=== PATIENT | male | born 1980 | race Hispanic/Latino ===

== ENCOUNTER 2024-03-20 15:58 | Inpatient (IN) | payer OTHER ==
[~2024-03-20 15:58] MED LIST: Iopamidol-370 76% 500 ML MDV (1 ML CHARGE) ONE
[2024-03-20 17:26] LABS: Hematocrit 43.1 % (42.0-52.0); Hemoglobin 15.6 g/dL (14.0-18.0); Mean Corpuscular HGB CONC 36.2 g/dL (32.0-36.0); Mean Corpuscular Volume 88.5 fL (78.0-98.0); Platelet Count 254 10x3/uL (130-400); RBC Distribution Width 12.4 % (11.5-14.5); Red Blood Cell (RBC) Count 4.87 mill/uL (4.70-6.10)
[2024-03-20] MEDS ORDERED: Morphine 4 MG/ML VIAL ONE (17:26)
[2024-03-20 17:34] LABS: Lipase 26 U/L (8-78)
[2024-03-20] MEDS ORDERED: fentaNYL 50 mcg/mL 1 mL Vial ONE (17:35)
[2024-03-20 17:36] LABS: ALT (SGPT) 69 U/L (8-55); AST (SGOT) 70 U/L (5-34); Albumin 4.5 g/dL (3.5-5.0); Alkaline Phosphatase 89 U/L (40-110); Anion Gap 16 mmol/L (10-20); BUN (Urea Nitrogen) 12 mg/dL (8.9-20.6); Bilirubin, Total 0.4 mg/dL (0.2-1.2); Calc. Creatinine Clearance 0 mL/min (70-130); Calcium 9.5 mg/dL (7.8-10.44); Carbon Dioxide 21 mmol/L (22-29); Chloride 111 mmol/L (98-107); Estimated GFR 86; Glucose 99 mg/dL (70-105); Potassium 4.1 mmol/L (3.5-5.1); Protein, Total 7.5 g/dL (6.0-8.3); Sodium 144 mmol/L (136-145)
[2024-03-20 17:37] LABS: Acetaminophen Less than 10 mcg/mL (10.0-30.0); Alcohol 56.6 mg/dL (Less than 10); Salicylate Less than 8.0 mg/dL (15.0-30.0)
[2024-03-20 17:49] LABS: Troponin I Less than 0.010 ng/mL (< 0.028)
[2024-03-20 18:18] LABS: Band 16 % (5-11); Giant Platelets 0.9 % (0-5); Large Platelets 1.7 % (0-5); Lymphocytes 7 % (21-51); Monocytes 5 % (0-10); Neutrophil 72 % (42-75); Platelet Adequacy Comment Platelets Normal; Polychromasia SLIGHT = 2-3 cells HPF (0-2); Vacuoles SLIGHT
[2024-03-20 18:19] LABS: #Basophils 0.06 10x3/uL (0.0-0.2); #Eosinphils Less than 0.03 10x3/uL (0.0-0.7); %Basophils 0.2 % (0.0-1.0); %Lymphocytes 6.5 % (21.0-51.0); %Monocytes 5.7 % (0.0-10.0); %Neutrophils 87.2 % (42.0-75.0)
[2024-03-20] MEDS ORDERED: SUCCINYLCHOLINE/SOD CL,ISO/PF 200 MG/10 ML SYRINGE FS ONE (18:23)
[2024-03-20] MEDS ORDERED: Lidocaine 1% PF 5 ML VIAL ONE (18:23)
[2024-03-20] MEDS ORDERED: fentaNYL PF 100 MCG/2 ML SYRINGE ONE (18:23)
[2024-03-20] MEDS ORDERED: Ondansetron PF 4 MG/2 ML Vial ONE (18:23)
[2024-03-20] MEDS ORDERED: Dexamethasone 4 mg/ml Vial ONE (18:23)
[2024-03-20] MEDS ORDERED: Ketorolac Tromethamine 30 MG (1 mL) VIAL ONE (18:23)
[2024-03-20] MEDS ORDERED: Rocuronium Bromide 10 MG/ML (10ML VIAL) ONE (18:23)
[2024-03-20] MEDS ORDERED: Midazolam HCl 2 mg/2 ml Vial ONE (18:24)
[2024-03-20] MEDS ORDERED: PROPOFOL 20 ML ONE (18:24)
[2024-03-20] MEDS ORDERED: Ipratropium/Albuterol 3 ML NEB NEB PRN (18:38)
[2024-03-20] MEDS ORDERED: Glucagon 1 MG/ML KIT IM PRN (18:38)
[2024-03-20] MEDS ORDERED: Ondansetron ODT 4 MG TAB PO PRN (18:38)
[2024-03-20] MEDS ORDERED: Dextrose 5% in Water 1,000 ML IV PRN (18:38)
[2024-03-20] MEDS ORDERED: Dextrose 50% Abboject 50 ML SYRINGE SLOW IVP PRN (18:38)
[2024-03-20] MEDS ORDERED: Rib Fracture Protocol PO SCH (18:45)
[2024-03-20 19:26] LABS: Bacteria/HPF None Seen HPF (None Seen); Bilirubin Negative (Negative); Blood, Urine 1+ (Negative); CAUTI Indications for Culture Pelvic or flank pain; Clarity Clear (Clear); Glucose, Urine (Dipstick) Normal (Negative); Ketone, Urine Negative (Negative); Leukocyte Negative Leu/uL (Negative); Nitrite Negative (Negative); Protein, Urine (Dipstick) 30 mg/dL (Neg-Trace); Specific Gravity, Urine 1.045 (1.002-1.036); Squamous Epithelial None Seen HPF (0-3); Urobilinogen Normal mg/dL (Less than 2); WBC/HPF 0-3 HPF (0-3)
[2024-03-20 19:29] LABS: Urine Culture Reflex No No
[2024-03-20 19:30] LABS: Amphetamine Not Detected (NotDetected); Barbiturates Screen Not Detected (NotDetected); Benzodiazepine Screen Not Detected (NotDetected); Cocaine Metabolite Screen Detected (NotDetected); Methadone Not Detected (NotDetected); Methamphetamine Not Detected (NotDetected); Opiate Screen Detected (NotDetected); Oxycodone Screen Not Detected (NotDetected); Phencyclidine (PCP) Not Detected (NotDetected); THC/Cannabinoid Screen Not Detected (NotDetected); Tricyclic Screen Not Detected (NotDetected)
[2024-03-20] MEDS ORDERED: HYDROmorphone 2 MG/ML VIAL ONE (19:54)
[2024-03-20] MEDS ORDERED: PACU-Morphine 4MG/ML VIAL SLOW IVP PRN (19:57)
[2024-03-20] MEDS ORDERED: HYDROmorphone 2 MG/ML VIAL SLOW IVP PRN (19:57)
[2024-03-20] MEDS ORDERED: Promethazine HCl 25 MG/ML VIAL IM PRN (19:57)
[2024-03-20] MEDS ORDERED: Ondansetron HCl/PF 4 MG/2 ML Vial IVP PRN (19:57)
[2024-03-20] MEDS ORDERED: SUGAMMADEX SODIUM 200 MG/2 ML VIAL ONE (20:10)
[2024-03-20] MEDS ORDERED: Meperidine HCl/PF 25 MG (1 mL) VIAL ONE (20:54)
[2024-03-20] MEDS ORDERED: CEFAZOLIN 2 GM in Sodium Chloride 0.9% 100 ML IVPB SCH (22:00)
[2024-03-20] MEDS: Ibuprofen 200 MG TAB PO SCH (22:15)
[2024-03-20] MEDS: Famotidine 20 MG TAB PO SCH (22:15)
[2024-03-20] MEDS: Gabapentin 300 MG CAP PO SCH (22:15)
[2024-03-20] MEDS: CEFAZOLIN 2 GM in Sodium Chloride 0.9% 100 ML IVPB SCH (22:16)
[2024-03-20] MEDS: Famotidine/PF 20 mg/2ml Vial SLOW IVP SCH (22:19)
[2024-03-20] MEDS: Lactated Ringer's 1,000 ML IV SCH (22:19)
[2024-03-20 22:45] LABS: Hematocrit 43.5 % (42.0-52.0); Hemoglobin 15.1 g/dL (14.0-18.0)
[2024-03-20 23:46] VITALS: BMI 27.8
[2024-03-21] MEDS: Ketorolac Tromethamine 30 MG (1 mL) VIAL IVP SCH (00:43)
[2024-03-21] MEDS: traMADol HCl 50 MG TAB PO SCH (00:44)
[2024-03-21] MEDS: Acetaminophen 500 MG TAB PO SCH (00:45)
[2024-03-21] MEDS: Ipratropium/Albuterol 3 ML NEB NEB SCH (01:11)
[2024-03-21] MEDS: Ondansetron PF 4 MG/2 ML Vial IVP PRN (01:34)
[2024-03-21 05:10] LABS: #Basophils Less than 0.03 10x3/uL (0.0-0.2); #Eosinphils Less than 0.03 10x3/uL (0.0-0.7); %Basophils 0.1 % (0.0-1.0); %Lymphocytes 3.6 % (21.0-51.0); %Monocytes 5.4 % (0.0-10.0); %Neutrophils 90.5 % (42.0-75.0); Hematocrit 39.9 % (42.0-52.0); Hemoglobin 14.1 g/dL (14.0-18.0); Mean Corpuscular HGB CONC 35.3 g/dL (32.0-36.0); Mean Corpuscular Hemoglobin 31.3 pg (27.0-31.0); Mean Corpuscular Volume 88.7 fL (78.0-98.0); Mean Platelet Volume 10.4 fL (7.4-10.4); Platelet Count 275 10x3/uL (130-400); RBC Distribution Width 12.7 % (11.5-14.5)
[2024-03-21 05:41] LABS: Anion Gap 19 mmol/L (10-20); BUN (Urea Nitrogen) 13 mg/dL (8.9-20.6); Calc. Creatinine Clearance 124 mL/min (70-130); Calcium 9.1 mg/dL (7.8-10.44); Carbon Dioxide 17 mmol/L (22-29); Chloride 107 mmol/L (98-107); Estimated GFR 101; Glucose 155 mg/dL (70-105); Potassium 3.9 mmol/L (3.5-5.1); Sodium 139 mmol/L (136-145)
[2024-03-21] MEDS: Cyclobenzaprine 10 MG TAB PO PRN (11:04)
[2024-03-21] MEDS: TETANUS, DIPHTHERIA TOX,ADULT (TDVAX) 0.5 ML VIAL IM ONE (11:04)
[2024-03-21] MEDS: Morphine 2 MG/ML VIAL SLOW IVP PRN (16:50)
[2024-03-22] MEDS: Enoxaparin 40 MG (0.4 mL) SYRINGE SC SCH (11:32)
[2024-03-22 12:20] VITALS: BP 135/88; TEMP 98.1
[2024-03-26] MEDS ORDERED: Ibuprofen 200 MG TAB PO SCH (06:00)
== END 2024-03-22 16:05 | disposition home or self-care (01) | DRG 493 ==
LOC: ERS 15:58 → ERHOLD 18:38 → SJJU 21:07
PROVIDERS: ADMIT Surgery; ATTEND Surgery
PROC: 0QSG3BZ Reposition Right Tibia with Monoplanar External Fixation Device, Percutaneous Approach (ICD-10-PCS; principal; 2024-03-21)
DX: S82.871B Displaced pilon fracture of right tibia, initial encounter for open fracture type I or II (principal); S12.590A Other displaced fracture of sixth cervical vertebra, initial encounter for closed fracture; S82.251A Displaced comminuted fracture of shaft of right tibia, initial encounter for closed fracture; S22.41XA Multiple fractures of ribs, right side, initial encounter for closed fracture; S82.891B Other fracture of right lower leg, initial encounter for open fracture type I or II; S82.451A Displaced comminuted fracture of shaft of right fibula, initial encounter for closed fracture; Z89.022 Acquired absence of left finger(s); V89.2XXA Person injured in unspecified motor-vehicle accident, traffic, initial encounter; Y93.I9 Activity, other involving external motion; Y92.411 Interstate highway as the place of occurrence of the external cause
CPT/HCPCS: 27808; 36415; 70450; 70498; 71045; 71260; 72125; 74177; 76377; 80048; 80053; 80306; 80307; 81001; 83690; 84484; 85025; 90714; 94640; 96374; 96375; G0390; J1100; J1170; J1650; J1885; J2175; J2250; J2270; J2272; J2405; J2704; J3010; J3490; J7120; J7620; Q9967; S0028

== ENCOUNTER 2024-04-12 09:03 | Inpatient (IN) | payer OTHER, SELFPAY ==
[2024-04-12 09:28] LABS: #Basophils 0.06 10x3/uL (0.0-0.2); %Basophils 0.6 % (0.0-1.0); %Eosinophils 1.3 % (0.0-10.0); %Lymphocytes 24.4 % (21.0-51.0); %Monocytes 4.2 % (0.0-10.0); %Neutrophils 69.2 % (42.0-75.0); Hematocrit 41.9 % (42.0-52.0); Hemoglobin 14.3 g/dL (14.0-18.0); Mean Corpuscular HGB CONC 34.1 g/dL (32.0-36.0); Mean Corpuscular Hemoglobin 30.7 pg (27.0-31.0); Mean Corpuscular Volume 89.9 fL (78.0-98.0); Platelet Count 501 10x3/uL (130-400); RBC Distribution Width 12.1 % (11.5-14.5); Red Blood Cell (RBC) Count 4.66 mill/uL (4.70-6.10)
[2024-04-12] MEDS ORDERED: Morphine 4 MG/ML VIAL ONE (09:46)
[2024-04-12] MEDS ORDERED: Ketorolac Tromethamine 30 MG (1 mL) VIAL ONE (09:46)
[2024-04-12 09:50] LABS: ALT (SGPT) 53 U/L (8-55); AST (SGOT) 20 U/L (5-34); Albumin 4.2 g/dL (3.5-5.0); Alkaline Phosphatase 153 U/L (40-110); Anion Gap 14 mmol/L (10-20); BUN (Urea Nitrogen) 14 mg/dL (8.9-20.6); Calc. Creatinine Clearance 0 mL/min (70-130); Calcium 10.5 mg/dL (7.8-10.44); Carbon Dioxide 23 mmol/L (22-29); Chloride 105 mmol/L (98-107); Estimated GFR 111; Globulin 4.6 g/dL (2.4-3.5); Glucose 101 mg/dL (70-105); Potassium 3.9 mmol/L (3.5-5.1); Protein, Total 8.8 g/dL (6.0-8.3); Sodium 138 mmol/L (136-145)
[2024-04-12 10:07] LABS: Bilirubin, Total 0.4 mg/dL (0.2-1.2)
[2024-04-12] MEDS ORDERED: Iopamidol-370 76% 500 ML MDV (1 ML CHARGE) ONE (10:15)
[2024-04-12 10:26] LABS: Troponin I Less than 0.010 ng/mL (< 0.028)
[2024-04-12 11:19] LABS: Bacteria/HPF None Seen HPF (None Seen); Bilirubin Negative (Negative); Blood, Urine Negative (Negative); CAUTI Indications for Culture Alt mental st,lethar; Clarity Clear (Clear); Glucose, Urine (Dipstick) Normal (Negative); Ketone, Urine Negative (Negative); Leukocyte Negative Leu/uL (Negative); Nitrite Negative (Negative); Protein, Urine (Dipstick) Negative (Neg-Trace); RBC/HPF 0-3 HPF (0-3); Specific Gravity, Urine 1.016 (1.002-1.036); Squamous Epithelial None Seen HPF (0-3); Urobilinogen Normal mg/dL (Less than 2); WBC/HPF None Seen HPF (0-3); pH, Urine 6.5 (5.0-9.0)
[2024-04-12 11:22] LABS: Urine Culture Reflex No No
[2024-04-12 12:17] LABS: Lactic Acid 1.7 mmol/L (0.5-2.2)
[2024-04-12] MEDS ORDERED: Milk Of Magnesia 30 ML UDCUP PO PRN (15:48)
[2024-04-12] MEDS ORDERED: Bisacodyl 10 MG SUPP PR PRN (15:48)
[2024-04-12] MEDS ORDERED: Morphine 2 MG/ML VIAL SLOW IVP PRN (15:48)
[2024-04-12] MEDS ORDERED: Ondansetron PF 4 MG/2 ML Vial SLOW IVP PRN (15:48)
[2024-04-12] MEDS ORDERED: CEFAZOLIN 2 GM in Sodium Chloride 0.9% 100 ML IVPB SCH (16:00)
[2024-04-12] MEDS ORDERED: Communication Order-Pharmacy FS SCH (16:00)
[2024-04-12 16:37] VITALS: BMI 33.8
[2024-04-12] MEDS: HYDROcodone/Acetaminophen 5/325 mg Tablet PO PRN (16:45)
[2024-04-12] MEDS: TETANUS, DIPHTHERIA TOX,ADULT (TDVAX) 0.5 ML VIAL IM ONE (19:20)
[2024-04-13] MEDS ORDERED: Midazolam HCl 2 mg/2 ml Vial ONE (12:37)
[2024-04-13] MEDS ORDERED: fentaNYL 50 mcg/mL 1 mL Vial ONE (12:37)
[2024-04-13] MEDS ORDERED: Ropivacaine 0.5% HCl/PF (150 MG/30 ML VIAL) ONE (12:38)
[2024-04-13] MEDS ORDERED: Lidocaine 1% PF 5 ML VIAL ONE ×2 (12:38→12:48)
[2024-04-13] MEDS ORDERED: Dexmedetomidine 200 MCG/2 ML VIAL ONE ×2 (12:48)
[2024-04-13] MEDS ORDERED: fentaNYL PF 100 MCG/2 ML SYRINGE ONE (12:48)
[2024-04-13] MEDS ORDERED: PROPOFOL 40 ML ONE (12:48)
[2024-04-13] MEDS ORDERED: Dexamethasone 4 mg/ml Vial ONE (12:48)
[2024-04-13] MEDS ORDERED: Ondansetron PF 4 MG/2 ML Vial ONE (12:48)
[2024-04-13] MEDS ORDERED: Ketorolac Tromethamine 30 MG (1 mL) VIAL ONE (12:48)
[2024-04-13] MEDS ORDERED: Sodium Chloride 0.9% 100 ML ONE (13:27)
[2024-04-13] MEDS ORDERED: CEFAZOLIN 2 GM VIAL ONE (13:27)
[2024-04-13] MEDS ORDERED: PHENYLEPHRINE-NS 100 MCG/ML 10 ML SYRINGE ONE (14:28)
[2024-04-13] MEDS ORDERED: ePHEDrine Sulfate 50 MG/10 ML VIAL ONE (14:43)
[2024-04-13] MEDS ORDERED: Vancomycin 1 GM VIAL ONE (15:36)
[2024-04-13] MEDS ORDERED: HYDROmorphone 0.5 MG/0.5 ML SYRINGE ONE (16:36)
[2024-04-13] MEDS ORDERED: Promethazine HCl 25 MG/ML VIAL ONE (16:47)
[2024-04-13] MEDS: CEFAZOLIN 2 GM in Sodium Chloride 0.9% 100 ML IVPB SCH (21:19)
[2024-04-14 15:09] VITALS: BP 112/72; TEMP 98.3
== END 2024-04-14 15:50 | disposition home or self-care (01) | DRG 494 ==
LOC: ERS 09:03 → SURG B 16:17
PROVIDERS: ADMIT Orthopaedic Surgery; ATTEND Orthopaedic Surgery
PROC: 0QSG04Z Reposition Right Tibia with Internal Fixation Device, Open Approach (ICD-10-PCS; principal; 2024-04-13)
PROC: 0QSJ04Z Reposition Right Fibula with Internal Fixation Device, Open Approach (ICD-10-PCS; 2024-04-13)
DX: S82.451A Displaced comminuted fracture of shaft of right fibula, initial encounter for closed fracture (principal); S82.301A Unspecified fracture of lower end of right tibia, initial encounter for closed fracture; V89.2XXA Person injured in unspecified motor-vehicle accident, traffic, initial encounter; Z79.899 Other long term (current) drug therapy; Z89.022 Acquired absence of left finger(s)
CPT/HCPCS: 36415; 71275; 80053; 81001; 83605; 84484; 85025; 87040; 87086; 90714; 93005; 96374; 96375; C1713; C1889; J1100; J1170; J1885; J2250; J2270; J2405; J2550; J2704; J2795; J3010; J3370; J3490; Q9967